=== PATIENT | female | born 1980 | race Caucasian/White ===

== ENCOUNTER 2017-06-20 00:17 | Emergency (ER) | payer OTHER ==
[~2017-06-20] VITALS: Ht 160 cm; Wt 74.8 kg
--- NOTE | 2017-06-20 00:30 | NUR ---
Pt ambulated to room with steady gait. Pt c/o sharp left sided chest pain right under left breast that radiates to her back, left shoulder and down left arm. Pt sts pain has been intermittent for the last 3-5 days however in the last 30-45 mins it has remained constant and more severe. Pt sts worse with movement and palpation. EKG obtained. Pt placed on monitor. NSR. Resp even and unlabored. Pt resting in position of comfort for self. Awaiting further eval.
[2017-06-20] MEDS ORDERED: CETI-102 (00:49)
[2017-06-20] MEDS ORDERED: LORA-114 (00:49)
[2017-06-20 01:11] LABS: BASOPHILS # (AUTO) 0.1 K/uL (0.0-8.0); BASOPHILS % (AUTO) 0.9 % (0.0-2.0); EOSINOPHILS # (AUTO) 0.2 K/uL (0.0-0.7); EOSINOPHILS % (AUTO) 1.8 % (0.0-7.0); HEMATOCRIT 45.8 % (37-47); HEMOGLOBIN 15.1 G/DL (12.0-16.0); LYMPHOCYTES # (AUTO) 3.3 K/UL (0.8-4.8); LYMPHOCYTES % (AUTO) 27.5 % (20.5-51.5); MEAN CORPUSCULAR HEMOGLOBIN 28.8 UUG (27.0-31.0); MEAN CORPUSCULAR HGB CONC 33 g/dL (32.0-37.0); MEAN CORPUSCULAR VOLUME 87.5 FL (81.0-99.0); MONOCYTES # (AUTO) 0.9 K/UL (0.1-1.30); NEUTROPHILS # (AUTO) 7.3 K/UL (1.8-8.9); NEUTROPHILS % (AUTO) 61.8 % (38.5-71.5); PLATELET COUNT (AUTO) 258 K/UL (150-450); RED BLOOD CELL COUNT(AUTO) 5.23 MIL/UL (4.2-5.4); WHITE BLOOD COUNT (AUTO) 11.8 K/UL (4.0-11.2)
--- NOTE | 2017-06-20 01:13 | NUR ---
Pt medicated for discomfort, will monitor for effects of medication. IV refused, Dr. Valladares aware. Labs drawn and sent. Awaiting results
[2017-06-20 01:22] LABS: CREATININE 0.8 mg/dL (0.6-1.3); POTASSIUM 3.8 mmol/L (3.5-5.1)
[2017-06-20 01:34] LABS: BILIRUBIN,DIRECT 0.2 mg/dL (0.0-0.2); TOTAL PROTEIN, SERUM 8.4 g/dL (6.4-8.2)
--- NOTE | 2017-06-20 01:44 | NUR ---
Pt sts little to no change in pain with medications. Dr. Valladares notified, awaiting further orders.
--- NOTE | 2017-06-20 02:15 | NUR ---
Pt medicated for discomfort, will monitor for effects of medication. Pt resting in position of comfort for self. Family at bedside.
--- NOTE | 2017-06-20 02:34 | NUR ---
Pt sts the chest to shoulder pain has improved. Sts that pain is a 5/10. However pt now complaining of severe 10/[address] Valladares notified and to bedside to evaluate pt.
--- NOTE | 2017-06-20 02:48 | NUR ---
Pt medicated for epigstric pain, will monitor for effects of medication.
--- NOTE | 2017-06-20 03:19 | NUR ---
Pt sts no relief from previous medication for epigastric pain. Pt conts to be tearful and restless. Pt declines further medication. Pt sts " I just want to go home and maybe try to eat at home." Asked several times if she needed further medication or wanted to stay for further evaluation. Pt declined each time. Pt given ACI. Pt verbalized understanding of dc instructions. Pt wheeled out of ER via w/c with ride home.
[2017-06-20 03:24] VITALS: BP 120/84
== END 2017-06-20 03:25 | disposition home or self-care (01) ==
LOC: ER 00:19
DX: R07.89 Other chest pain (principal)
CPT/HCPCS: 36415; 71010; 80048; 80076; 83880; 84484; 85025; 85730; 93005; 96372 ×2; 99285; A4663; J1170; J2550; 70030-TC

== ENCOUNTER 2018-02-27 08:55 | Emergency (ER) | payer MEDICAID ==
[~2018-02-27] VITALS: Ht 160 cm; Wt 75.7 kg
[~2018-02-27 08:55] MED LIST: CETI-102; LORA-114
--- NOTE | 2018-02-27 10:24 | NUR ---
Patient discharged to home in stable conditon. Written and verbal after care instructions given. Patient verbalizes understanding of instructions.pt walks in steady gait. pt with so.
== END 2018-02-27 10:25 | disposition home or self-care (01) ==
LOC: ER 08:55
DX: S90.31XA Contusion of right foot, initial encounter (principal); Z79.899 Other long term (current) drug therapy; W22.8XXA Striking against or struck by other objects, initial encounter; Y93.89 Activity, other specified; Y92.89 Other specified places as the place of occurrence of the external cause; Y99.8 Other external cause status
CPT/HCPCS: 73630; 99284; A4663

== ENCOUNTER 2018-04-03 18:39 | Emergency (ER) | payer MEDICAID ==
[~2018-04-03] VITALS: Ht 160 cm; Wt 74.8 kg
--- NOTE | 2018-04-03 18:57 | NUR ---
PT.WAS SEEN BY .
[2018-04-03] MEDS ORDERED: predniSONE 20 MG TABLET PO ONE (19:15)
[2018-04-03] MEDS ORDERED: predniSONE 10 MG TABLET ONE (19:31)
[2018-04-03] MEDS ORDERED: predniSONE 50 MG TABLET ONE (19:34)
--- NOTE | 2018-04-03 19:39 | NUR ---
PT IN NO DISTRESS, DENIES CP/SOB , PT ADVISED TO F/U WITH PMD OR RETURN TO ER FOR WORSENING OF SYMPTOMS,VERBALIZES UNDERSTANDING
== END 2018-04-03 19:41 | disposition home or self-care (01) ==
LOC: ER 18:41
DX: J45.909 Unspecified asthma, uncomplicated (principal); Z91.09 Other allergy status, other than to drugs and biological substances; Z79.899 Other long term (current) drug therapy
CPT/HCPCS: 99283; A4663; J7512 ×2

== ENCOUNTER 2018-06-22 13:47 | Emergency (ER) | payer MEDICAID ==
[~2018-06-22] VITALS: Ht 160 cm; Wt 77.1 kg
--- NOTE | 2018-06-22 14:00 | NUR ---
MSE DONE BY DR DESAI IN ROOM 03A.
--- NOTE | 2018-06-22 14:28 | NUR ---
Patient discharged to home in stable conditon. Written and verbal after care instructions given. Patient verbalizes understanding of instructions.
[2018-06-22 14:35] VITALS: BP 11/65
== END 2018-06-22 14:35 | disposition home or self-care (01) ==
LOC: ER 13:47
DX: J20.9 Acute bronchitis, unspecified (principal); Z90.49 Acquired absence of other specified parts of digestive tract
CPT/HCPCS: A4663